=== PATIENT | female | born 1990 | race African-American/Black ===

== ENCOUNTER 2016-05-30 12:37 | Emergency (ER) | payer SELFPAY ==
[2016-05-30 12:52] VITALS: BMI 24.5
[2016-05-30 12:53] VITALS: BP 121/71; PULSE 105; TEMP 98.8
== END 2016-05-30 16:03 | disposition left against medical advice (07) ==
LOC: ED 12:37
DX: M54.9 Dorsalgia, unspecified (principal)
CPT/HCPCS: 99281